=== PATIENT | female | born 2005 | race Caucasian/White ===

== ENCOUNTER 2023-02-04 10:31 | Emergency (ER) | payer OTHER, SELFPAY ==
[2023-02-04] VITALS (8 sets, daily range): BP systolic 100–119; BP diastolic 66–81; PULSE 77–96; RESP 16; TEMP 36.8; O2SAT 97–100; BMI 21.0
[2023-02-04 11:22] LABS: Appearance Urine Clear (Clear); Bilirubin Urine Negative (Negative); Blood Urine 2+ (Negative); Color Urine Yellow (Yellow); Glucose Urine Negative (Negative); Ketones Urine Negative (Negative); Leukocyte Esterase Urine Negative (Negative); Nitrite Urine Negative (Negative); Protein Urine Negative (Negative); Specific Gravity Urine 1.025 (1.000-1.030); Urobilinogen Urine 0.2 (0.2-1.0); pH Urine 5.5 (5.0-8.5)
[2023-02-04 11:24] LABS: Ur HCG Qualitative* Negative (Negative)
[2023-02-04 11:32] LABS: Mucus Urine Few; Squamous Epithelial Cell Urine Many (None-Few); WBC Urine 0-2 (0-5)
--- NOTE | 2023-02-04 11:46 | ED.GENADULT ---
HPI - General Adult General Date Seen: 02/04/23 Chief complaint: Abdominal Pain Stated complaint: Body aches, rash, nausea Time Seen by Provider: 02/04/23 11:12 History of Present Illness HPI narrative: This is a 18-year-old female with a past medical history of ADHD, anxiety/depression, but otherwise generally healthy. She presents to the ER today with her boyfriend. 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 There has been COVID circulating on campus, but They have not been around specific person with COVID lately. Patient has had a mild nasal congestion that began last week. That symptom was fairly mild and not associated with other concerning symptoms. No cough. No shortness of breath. No earache. No headache. No nausea, vomiting or diarrhea. She began our to have her normal menstrual cycle 2 days ago on Friday. Her menstrual cycles are typically light and not associated with much cramping. She put a typical tampon in yesterday and forgot about it through the day. She remembered is in last night and took it out. Yesterday evening she began to feel more ill. She developed body ache, headache, dizziness, fever and chills. She was also nauseous but not vomiting. She had 1 loose , nonbloody stool. No urinary symptoms. She was nauseous but did not throw up. She was trying to drink lots of water but was not making much urine. No cough or shortness of breath. She also notes that she has 1 swollen lymph node (in her right anterior cervical chain). This morning she had ongoing fever, chills, nausea, achiness. She also developed a pruritic rash on her low back. It was a spread across her low back and her posterior hips. She was worried with the rash that she might be developing toxic shock syndrome so came here to the ER. She does have a tampon that she put in this morning. She is not having any particularly heavy bleeding today. No purulent or brown bleeding. She does not think she is . She is having mild pelvic cramping, which is unusual for her because she typically does not have any cramping at all with her menstrual cycle. No flank pain. She had some chest pain last night but that is resolved now. She is not short of breath. Related Data Home Medications Medication Instructions Recorded Confirmed dextroamphetamine-amphetamine 10 10 mg PO DAILY 02/04/23 02/04/23 mg tablet (Adderall) dextroamphetamine-amphetamine ER 10 mg PO DAILY 02/04/23 02/04/23 10 mg 24hr capsule,extend release (Adderall XR) sertraline 50 mg tablet 50 mg PO DAILY 02/04/23 02/04/23 Previous Rx's Medication Instructions Recorded ondansetron 4 mg disintegrating 4 mg PO Q8H PRN nausea and 02/04/23 tablet vomiting #10 tabs Allergies Allergy/AdvReac Type Severity Reaction Status Date / Time No Known Drug Allergies Allergy Verified 02/04/23 10:53 PFSH PFS Social History Smoking Status: Current some day smoker What tobacco products do you use: cigarettes Do you use any of these nicotine containing products: Vaping Products Second hand tobacco smoke exposure: No How often do you have a drink containing alcohol: 2-3 times a week How many standard drinks containing alcohol do you have on a typical day: 1 or 2 How often do you have six or more drinks on one occasion: Never AUDIT-C Alcohol total score: 3 Non-prescribed substance use: marijuana (any form) Exam Narrative: Exam Narrative: Constitutional: Appears well-developed and well-nourished. Alert. Conversant. Patient is uncomfortable appearing. Mildly anxious. She 2nd gassing a lot of her history and sequence of her illness. Overall, alert, conversant, Non toxic. Boyfriend attentively at her side. HENT: Head: Atraumatic. Nose: Nose normal. Small amount of nonpurulent rhinorrhea. Mouth/Throat: Oral mucosa is clear and moist. no trismus. Pharynx normal. Tonsils symmetric. No tonsillar enlargement, erythema, or exudate. Right ear: Mastoid, pinna, canal normal. Left ear: Mastoid, pinna, canal normal. Eyes: Conjunctivae normal. EOM normal. Pupils equal, round, and reactive to light. No scleral icterus. Neck: Normal range of motion. Neck supple. No tracheal deviation present. Cardiovascular: Normal rate, regular rhythm. No gallop. No friction rub. No murmur heard. Symmetric radial artery pulses Pulmonary/Chest: Effort normal. No stridor. No respiratory distress. No wheezes. No rales. No rhonchi . No tenderness. Abdominal: Soft. Bowel sounds normal. No distension. No mass. No HSM Mild left lower quad> right lower quadrant tenderness. No rebound. No guarding. No CVA tenderness. Musculoskeletal: RUE: Normal range of motion. No tenderness. No deformity LUE: Normal range of motion. No tenderness. No deformity RLE: Normal range of motion. No edema. No tenderness. No deformity LLE: Normal range of motion. No edema. No tenderness. No deformity Lymph: No cervical adenopathy. Neurological: Alert and oriented to person, place, and time. Normal strength. CN II-VII intact. No sensory deficit. GCS eye subscore is 4. GCS verbal subscore is 5. GCS motor subscore is 6. Normal coordination Skin: She has a small irregularly shaped roughly 3 x 5 cm of erythema located on her low back. She showed me a picture of the rash on her low back from this morning and at that in the picture there picture shows a more widespread rash involving both of her lumbar paraspinous muscles, sacral area and extending onto both of her hips. The rash was erythematous, slightly raised, and suggestive ofr urticaria and slightly raised irregularly shaped a rash that would be consistent with hives. There was no bright erythema, blistering, or the peeling. Currently the rash is not raised. It is minimally erythematous. It seems to be substantially fading compared to earlier. It is not sandpapery or raised. No vesicles, pustules, bullae. Otherwise, skin is warm and dry. No other rash noted. No pallor. Normal capillary refill. Psychiatric: Normal mood. Mildly anxious Const: Vital Signs, click to edit/add: Vital Signs - 24 hr 02/04/23 10:46 02/04/23 12:17 02/04/23 12:18 Temperature 98.3 F Pulse Rate 78 77 Pulse Rate [Pulse Oximeter] 96 Respiratory Rate 16 Blood Pressure 119/81 Blood Pressure [Ri ght Upper Arm] 100/66 Pulse Oximetry 99 99 [facility] 02/04/23 12:30 02/04/23 12:45 02/04/23 13:00 Temperature Pulse Rate 86 82 78 Pulse Rate [Pulse Oximeter] Respiratory Rate Blood Pressure Blood Pressure [Ri ght Upper Arm] Pulse Oximetry 98 98 97 Oxygen Delivery Or thod 02/04/23 13:04 02/04/23 14:13 Temperature Pulse Rate 79 Pulse Rate [Pulse Oximeter] 77 Respiratory Rate 16 Blood Pressure 109/78 Blood Pressure [Ri ght Upper Arm] 107/67 Pulse Oximetry 99 100 Oxygen Delivery Me thod Room Air Course Course ED Course: Recheck-feeling better after receiving Zofran. Nausea improved. Headache and body aches significantly improved but not resolved after Toradol. Overall she looks much better. She is smiling, conversant, much happier than when she arrived. He Vital Signs Vital signs: Initial Vital Signs Temperature 98.3 F 02/04/23 10:46 Temperature Source Temporal Artery Scan 02/04/23 10:46 Pulse Rate 96 02/04/23 10:46 Respiratory Rate 16 02/04/23 10:46 Blood Pressure 100/66 02/04/23 10:46 Blood Pressure Mean 77 02/04/23 10:46 Blood Pressure Position Sitting 02/04/23 10:46 Pulse Oximetry 99 02/04/23 10:46 Oxygen Delivery Method Room Air 02/04/23 10:46 Vital Signs Temperature 98.3 F 02/04/23 10:46 Pulse Rate 96 02/04/23 10:46 Respiratory Rate 16 02/04/23 10:46 Blood Pressure 100/66 02/04/23 10:46 Pulse Oximetry 99 02/04/23 10:46 Oxygen Delivery Method Room Air 02/04/23 10:46 Temperature 98.3 F 02/04/23 10:46 Pulse Rate 77 02/04/23 14:13 Respiratory Rate 16 02/04/23 14:13 Blood Pressure 107/67 02/04/23 14:13 Pulse Oximetry 100 02/04/23 14:13 Oxygen Delivery Method Room Air 02/04/23 14:13 Medical Decision Making MDM Narrative Medical decision making narrative: Child presents for evaluation of fever associated with fatigue, nausea, body aches, headache, joint aches. She is also currently having her menstrual cycle and is having some mild lower pelvic cramping. She left a tampon in most of the day yesterday and then developed an urticarial rash on her low back and posterior pelvis this morning. She was concerned about toxic shock syndrome. By the time she arrived here in the ER her rash had almost completely resolved while she was here it did completely resolved. There is no sign of any other toxic shock related rash. Differential is broad. No classic rash to suggest a definitive viral syndrome. No evidence for OM on exam. No pharyngitis. Differential for fever included cellulitis, septic arthritis, osteomyelitis but these are not seen on exam. Lungs are clear and no significant cough, so I doubt pneumonia. She had negative at home COVID test. We repeated a COVID PCR testing is negative. Influenza and RSV negative as well. Abdominal exam is benign, appendicitis/colitis/ intra-abdominal source for fever is unlikely. The patient is smiling, alert, sitting up, and non-toxic, so I do not think sepsis or meningitis is present. UA is normal. Patient is confident that she had her tampon removed yesterday. No concern for any residual retained vaginal foreign body. test negative. She is not having any other vaginal discharge or unusual bleeding to suggest cervicitis or PID. She was concerned about toxic shock syndrome. At this point I do not think the clinical syndrome is present. Would hold off on broad-spectrum antibiotics or admission at this time. Labs do show leukopenia which I think could be consistent with a viral syndrome. She has had recent nasal congestion, and URI symptoms. At this point the patient is non-toxic, well appearing. This fever is likely due to viral illness. Plan of care includes supportive care with antipyretics, fluids, and watchful waiting at home. Instructions to return for recheck in [] days if not improved, or immediately if worsening fever, decreasing oral intake, lethargy, irritability, worsening or recurring rash, worsening abdominal pain, or any other concerns. Lab Data Labs: Lab Results 02/04/23 02/04/23 02/04/23 Range/Units 11:15 11:55 12:00 WBC 3.71 L (4.50-11.00) K/uL RBC 4.44 (4.00-5.20) m/uL Hgb 12.5 (12.0-16.0) gm/dL Hct 37.5 (33.0-51.0) % MCV 85 (80-100) fL MCH 28 (26-34) pg MCHC 33 (32-36) gm/dL RDW Coeff of Barb 11.8 (11.5-15.5) % Plt Count 111 L (140-440) K/uL Neut % (Auto) 37.2 L (42.0-72.0) % Lymph % (Auto) 51.5 H (20-44) % [place] % (Auto) 10.0 (0.0-11.0) % Eos % (Auto) 0.5 (0.0-7.0) % Baso % (Auto) 0.5 (0.0-3.0) % Neut # (Auto) 1.40 L (1.7-7.0) K/uL Lymph # (Auto) 1.90 (0.90-2.90) K/uL Mcpherson # (Auto) 0.40 (0.00-0.90) K/UL Eos # (Auto) 0.00 (0.00-0.50) K/uL Baso # (Auto) 0.00 (0.00-0.30) K/uL Abs Immat Gran (auto) 0.00 (0.00-0.30) K/uL Imm/Tot Granulo (auto) 0.3 % Diff Slide Review Acceptable Review (Acceptable) Sodium 139 (135-149) mmol/L Potassium 3.6 (3.6-5.1) mmol/L Chloride 105 (96-114) mmol/L Carbon Dioxide 24 (20-32) mmol/L Anion Gap 10 (7-15) mEq/L BUN 8 (5-24) mg/dL Creatinine 0.6 (0.5-1.5) mg/dL Estimated Creat Clear 139.23 Estimated GFR 132 ml/min Glucose 90 (60-115) mg/dL Lactate 0.7 (0.5-1.9) mmol/L Calcium 9.3 (8.4-10.6) mg/dL Total Bilirubin 0.4 (0.1-1.5) mg/dL AST 28 (12-35) U/L ALT 17 (4-35) U/L Alkaline Phosphatase 67 (40-150) U/L Total Protein 7.0 (6.0-8.3) g/dL Albumin 4.2 (3.3-5.0) g/dL Procalcitonin 0.27 (<0.50) ng/mL Urine Color Yellow (Yellow) Urine Appearance Clear (Clear) Urine pH 5.5 (5.0-8.5) Ur Specific [place] 1.025 (1.000-1.030) Urine Protein Negative (Negative) Urine Glucose (UA) Negative (Negative) Urine Ketones Negative (Negative) Urine Blood 2+ A (Negative) Urine Nitrite Negative (Negative) Urine Bilirubin Negative (Negative) Urine Urobilinogen 0.2 (0.2-1.0) Ur Leukocyte Esterase Negative (Negative) Urine RBC 2-5 A (0-2) Urine WBC 0-2 (0-5) Ur Squamous Epith Cells Many A (None-Few) Urine Bacteria None (None) Urine Mucus Few A (None) Urine HCG, Qual Negative (Negative) SARS-CoV-2 (PCR) Negative SARS-CoV-2 (Negative) Monoscreen Negative (Negative) Influenza Type A (PCR) Negative PCR FLU A (Negative) Influenza Type B (PCR) Negative PCR FLU B (Negative) RSV (PCR) Negative PCR RSV (Negative) Discharge Plan Discharge Clinical Impression: Fever, Acute viral syndrome Patient Disposition: Home, Self-Care Condition: Stable Instructions: Fever in Adults (ED), Viral Syndrome (ED) Additional Instructions: As we discussed, please come back to the ER right away if you have any worsening symptoms especially worsening headache, high fever, confusion, uncontrolled nausea or vomiting, dehydration, weakness, recurring or worsening rash, worsening pain in your abdomen, or if you have any problems. Prescriptions: New ondansetron 4 mg tablet,disintegrating 4 mg PO Q8H PRN (Reason: nausea and vomiting) Qty: 10 0RF No Action sertraline 50 mg tablet 50 mg PO DAILY dextroamphetamine-amphetamine [Adderall] 10 mg tablet 10 mg PO DAILY Rx Instructions: administer doses at least 4-6 hours apart dextroamphetamine-amphetamine [Adderall XR] 10 mg capsule,extended release 24hr 10 mg PO DAILY Follow Up/Referrals: Provider,Not a Local [Primary Care Provider] - Stand Alone Forms: [employer] Info Instructions
[2023-02-04] MEDS: ONDANSETRON 2 MG/ML inj 4 MG IVP (12:09)
[2023-02-04] MEDS: KETOROLAC 15 MG/ML inj IVP (12:11)
[2023-02-04 12:26] LABS: Lactate* 0.7 mmol/L (0.5-1.9)
[2023-02-04 12:32] LABS: Basophils Percent Auto 0.5 % (0.0-3.0); Eosinophils Percent Auto 0.5 % (0.0-7.0); Hematocrit 37.5 % (33.0-51.0); Hemoglobin* 12.5 gm/dL (12.0-16.0); Immature Granulocytes Pct Auto 0.3 %; Lymphocytes Percent Auto 51.5 % (20-44); Mean Corpuscular HGB Conc 33 gm/dL (32-36); Mean Corpuscular Hemoglobin 28 pg (26-34); Mean Corpuscular Volume 85 fL (80-100); Neutrophils Percent Auto 37.2 % (42.0-72.0); Platelet Count* 111 K/uL (140-440); RDW Coefficient of Variation % 11.8 % (11.5-15.5); Red Blood Count 4.44 m/uL (4.00-5.20); White Blood Count* 3.71 K/uL (4.50-11.00)
[2023-02-04 12:46] LABS: Slide Review Reflex Yes
[2023-02-04 12:58] LABS: Albumin* 4.2 g/dL (3.3-5.0); Chloride* 105 mmol/L (96-114); Mono Screen* Negative (Negative)
[2023-02-04 12:59] LABS: Potassium* 3.6 mmol/L (3.6-5.1); Sodium* 139 mmol/L (135-149)
[2023-02-04 13:01] LABS: Anion Gap 10 mEq/L (7-15); Aspartate Amino Transferase* 28 U/L (12-35); Bilirubin Total* 0.4 mg/dL (0.1-1.5); Blood Urea Nitrogen* 8 mg/dL (5-24); Carbon Dioxide* 24 mmol/L (20-32); Creatinine* 0.6 mg/dL (0.5-1.5); Est. Creatinine Clearance* 139.23; Estimated Glomerular Filt Rate 132 ml/min
[2023-02-04 13:02] LABS: Alanine Aminotransferase* 17 U/L (4-35); Alkaline Phosphatase* 67 U/L (40-150); Calcium* 9.3 mg/dL (8.4-10.6); Glucose* 90 mg/dL (60-115)
[2023-02-04 13:03] LABS: PCR FLU A Negative PCR FLU A (Negative); PCR FLU B Negative PCR FLU B (Negative); PCR RSV Negative PCR RSV (Negative)
[2023-02-04 13:05] LABS: SARS PCR* Negative SARS-CoV-2 (Negative)
[2023-02-04 13:16] LABS: Slide Review Acceptable Review (Acceptable)
[2023-02-04 13:19] LABS: Procalcitonin* 0.27 ng/mL (<0.50)
== END 2023-02-04 15:09 | disposition home or self-care (01) ==
PROVIDERS: Emergency Provider Emergency Medicine
DX: R50.9 Fever, unspecified (principal); B34.9 Viral infection, unspecified
CPT/HCPCS: 36415; 80053; 81001; 81025; 83605; 84145; 85025; 86308; 87631; 96374; 96375; 99284; J1885; J2405